=== PATIENT | male | born 1980 | race Caucasian/White ===

== ENCOUNTER → 2020-02-16 | Outpatient (CLI) | payer BC, OTHER | LOC: RAD 14:29 | DX: R31.9 Hematuria, unspecified (principal); R10.2 Pelvic and perineal pain | CPT/HCPCS: 74018 ==

== ENCOUNTER → 2020-03-02 | Outpatient (CLI) | payer BC, OTHER | LOC: CT 08:29 | DX: R74.8 Abnormal levels of other serum enzymes (principal); R79.89 Other specified abnormal findings of blood chemistry; R31.9 Hematuria, unspecified; R11.0 Nausea; R10.2 Pelvic and perineal pain; K76.0 Fatty (change of) liver, not elsewhere classified | CPT/HCPCS: Q9967 ==